=== PATIENT | female | born 1995 | race Caucasian/White ===

== ENCOUNTER 2017-06-03 16:27 | Emergency (ER) | payer SELFPAY ==
[~2017-06-03] VITALS: Ht 160 cm; Wt 66.0 kg
[~2017-06-03 16:27] MED LIST: BACT2OIN TOP; SULF1TAB47 PO; TYLE3 PO; Z.0.NO CURRENT MEDS
[2017-06-03 16:30] VITALS: BP 114/75; PULSE 85; RESP 16; TEMP 97.9; O2SAT 96
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
== END 2017-06-03 20:10 | disposition left against medical advice (07) ==
LOC: NETRI 16:27
DX: M25.512 Pain in left shoulder (principal); M54.9 Dorsalgia, unspecified; Z53.21 Procedure and treatment not carried out due to patient leaving prior to being seen by health care provider
CPT/HCPCS: 99281